=== PATIENT | male | born 1955 | race Caucasian/White ===

== ENCOUNTER 2017-03-31 08:01 | Day surgery (SDC) | payer OTHER ==
[~2017-03-31 08:01] MED LIST: Metoclopramide 10 MG/2 ML SDV IV PRN; Sodium Chloride 0.9% 1,000 ML IV SCH; Sodium Chloride 0.9% 10 ML Syringe FLUSH PRN
[2017-03-31] MEDS ORDERED: Propofol 200 MG/20 ML SDV ONE (09:00)
[2017-03-31 13:06] VITALS: BP 156/73
--- NOTE | 2017-04-02 12:58 | OR ---
DATE OF OPERATION: 03/31/2017 PREOPERATIVE DIAGNOSIS: Screening colonoscopy due. POSTOPERATIVE DIAGNOSIS: Pancolonic diverticulosis. ANESTHESIA: General per the Department of Anesthesia. ESTIMATED BLOOD LOSS: Less than 20 mL. OPERATIVE REPORT: After informed consent was obtained, the patient was taken to the endoscopy suite and placed in the left lateral decubitus position with all pressure points, bony prominences, and neurovascular bundles padded appropriately and with no undue tension. The Department of Anesthesia initiated cardiopulmonary monitoring and performed sedation. A digital rectal examination was performed, which was within normal limits. Then, a well- lubricated Olympus colonoscope was inserted into the anus and advanced through the rectum, sigmoid colon, descending colon, splenic flexure, transverse colon, hepatic flexure, ascending colon, and cecum. The prep was excellent allowing for complete visualization of all mucosal surfaces. Pancolonic diverticulosis was noted without inflammation, impaction, or any bleeding. The scope was slowly withdrawn from the cecum and all surface mucosal anatomy was again reviewed without any further abnormalities being identified. The colonoscope was straightened, as much air as possible was evacuated, and the scope was removed. The patient tolerated the procedure well and was taken to the postanesthesia care unit in stable condition. He reported to me postoperatively that he did not have a family history of colon cancer, therefore, he will not be due for a recall colonoscopy for 10 years. NORMAN/TERESITA /[id number]
== END 2017-03-31 11:30 | disposition home or self-care (01) ==
LOC: LB.SDS 08:01
PROVIDERS: ATTEND Surgery
DX: Z12.11 Encounter for screening for malignant neoplasm of colon (principal); K57.30 Diverticulosis of large intestine without perforation or abscess without bleeding; Z79.82 Long term (current) use of aspirin; Z79.899 Other long term (current) drug therapy
CPT/HCPCS: 45378; J2704; J7040